=== PATIENT | male | born 1950 | race Caucasian/White ===

== ENCOUNTER 2019-06-15 22:04 | Observation (INO) ==
[2019-06-15] MEDS ORDERED: LACTATED RINGERS 1,000 ML IV STA (22:34)
[2019-06-15] MEDS ORDERED: DIPHTHERIA/TETANUS ADULT VACCINE 0.5 ML SYRINGE IM ONE (22:34)
[2019-06-15 23:06] LABS: Basophils % 0.3 % (0.0-0.8); Eosinophils # 0.4 10*3/uL (0.0-0.87); Eosinophils % 2.6 % (0.00-10.9); Hemoglobin 10.1 GM/DL (14.0-18.0); Immature Granulocytes % 0.5 %; Immature Granulocytes Absolute 0.07 #; Lymphocytes % 15.4 % (21.2-54.2); Mean Corpuscular HGB Conc 33.7 GM/DL (32-36); Mean Corpuscular Volume 93.8 FL (87-102); Monocytes % 7.2 % (1.7-12.7); Platelet Count 84 T/CUMM (130-400); Red Cell Distribution Width 12.7 % (9.3-17.3); White Blood Count 13.3 T/CUMM (4-12)
[2019-06-15 23:23] LABS: Alanine Aminotransferase 79 U/L (16-61); Albumin 3.3 G/DL (3.4-5.0); Alkaline Phosphatase 85 U/L (45-117); Amylase 53 U/L (25-115); Aspartate Amino Transferase 95 U/L (0-37); Bilirubin,Total < 0.39 MG/DL (0.2-1.0); Blood Urea Nitrogen 23 MG/DL (7-18); Calcium 8.8 MG/DL (8.5-10.1); Estimated Glom Filtration Rate 60 ML/MIN; Glucose 365 MG/DL (74-106); Osmolality,Calculated 282.5 MOS/KG (273-304); Total Protein 6.3 G/DL (6.4-8.3)
[2019-06-15 23:54] LABS: Barbiturates Screen,Urine Negative (Negative); Benzodiazepines Screen,Urine Negative (Negative); Cannabinoid Screen,Urine Positive (Negative); Opiate Screen,Urine Negative (Negative); Phencyclidine Screen,Urine Negative (Negative)
[2019-06-15 23:56] LABS: Apearance,Urine CLEAR (Clear); Bilirubin,Urine Negative (Negative); Blood, Urine Small mg/dL (Negative); Glucose,Urine (UA) >=500 mg/dL (Negative); Ketones,Urine Negative (Negative); Nitrite,Urine Negative (Negative); Protein,Urine Negative; RBC,Urine 1 /HPF (0-4); Squamous Epithelial Cell,Urine Occasional /HPF (0-10); Urine Color Straw (Yellow); Urine Urobilinogen < 2.0 EU/DL (0.2-1.0); WBC,Urine 1 /HPF (0-6)
[2019-06-15 23:57] LABS: INR 1.1; Partial Thromboplastin Time 26.2 SECS (23.9-33.8)
[2019-06-16 00:11] LABS: Band Neutrophils 1 % (0-10); Lymphocytes 26 % (20-55); Segmented Neutrophils 69 % (50-85)
[2019-06-16] MEDS ORDERED: TISSUE ADHESIVE 1 EACH APPLICATOR TOP ONE (00:13)
[2019-06-16 00:14] LABS: Total Cells Counted 100
[2019-06-16 00:15] LABS: Platelet Estimate Decreased
[2019-06-16] MEDS ORDERED: ACETAMINOPHEN 325 MG TABLET PO PRN (00:55)
[2019-06-16] MEDS ORDERED: ONDANSETRON 4 MG/2 ML VIAL IV PRN (00:55)
[2019-06-16] MEDS: cefTRIAXone 1,000 MG in SYRINGE 1 EACH IV SCH (03:58)
[2019-06-16] MEDS: THIAMINE INJ 100 MG, FOLIC ACID INJ 1 MG, MAGNESIUM SULF INJ 2 GM, MULTIVITAMIN INJ 10 ... IV SCH (03:58)
[2019-06-16 06:21] LABS: Basophils % 0.3 % (0.0-0.8); Eosinophils # 0.3 10*3/uL (0.0-0.87); Eosinophils % 2.2 % (0.00-10.9); Hematocrit 29.8 VOL% (42.0-52.0); Hemoglobin 9.9 GM/DL (14.0-18.0); Immature Granulocytes % 0.7 %; Lymphocytes # 2.2 10*3/uL (1.4-4.0); Lymphocytes % 14.4 % (21.2-54.2); Mean Corpuscular HGB Conc 33.2 GM/DL (32-36); Mean Corpuscular Volume 92.3 FL (87-102); Mean Platelet Volume 11.5 FL (9.6-12.0); Monocytes % 8.5 % (1.7-12.7); Neutrophils % 73.9 % (38.7-73.9); Platelet Count 156 T/CUMM (130-400); Red Blood Count 3.23 MC/CUMM (3.8-5.5); Red Cell Distribution Width 12.9 % (9.3-17.3); White Blood Count 15.3 T/CUMM (4-12)
[2019-06-16 07:15] LABS: Calcium 9.3 MG/DL (8.5-10.1); Osmolality,Calculated 283.1 MOS/KG (273-304)
[2019-06-16] MEDS: PANTOPRAZOLE 40 MG VIAL IV SCH (10:36)
[2019-06-16] MEDS ORDERED: DEXTROSE 10% 250 ML BAG IV PRN (11:25)
[2019-06-16] MEDS ORDERED: GLUCAGON 1 MG VIAL IM PRN (11:25)
[2019-06-16] MEDS: INSULIN REGULAR 100 UNIT/ML SUBCUT SCH ×3 (12:19→20:39)
[2019-06-16] MEDS ORDERED: DEXTROSE 50% 25 GM/50 ML SYRINGE IV PRN (23:52)
[2019-06-17] MEDS: THIAMINE INJ 100 MG, FOLIC ACID INJ 1 MG, MAGNESIUM SULF INJ 2 GM, MULTIVITAMIN INJ 10 ... IV SCH (01:10)
[2019-06-17] MEDS: cefTRIAXone 1,000 MG in SYRINGE 1 EACH IV SCH (03:04)
[2019-06-17] MEDS: DULoxetine 20 MG CAPSULE PO SCH (08:44)
[2019-06-17] MEDS: TAMSULOSIN 0.4 MG CAPSULE PO SCH (08:45)
[2019-06-17] MEDS: INSULIN REGULAR 100 UNIT/ML SUBCUT SCH ×4 (08:45→21:49)
[2019-06-17] MEDS: predniSONE 5 MG TABLET PO SCH (08:45)
[2019-06-17] MEDS: ASPIRIN EC 81 MG TABLET PO SCH (08:45)
[2019-06-17] MEDS: PANTOPRAZOLE 40 MG VIAL IV SCH (08:46)
[2019-06-17 08:48] LABS: Basophils % 0.3 % (0.0-0.8); Eosinophils # 0.5 10*3/uL (0.0-0.87); Eosinophils % 5.3 % (0.00-10.9); Hematocrit 27.8 VOL% (42.0-52.0); Hemoglobin 9.2 GM/DL (14.0-18.0); Immature Granulocytes % 0.5 %; Immature Granulocytes Absolute 0.05 #; Lymphocytes # 2.1 10*3/uL (1.4-4.0); Lymphocytes % 22.9 % (21.2-54.2); Mean Corpuscular HGB Conc 33.1 GM/DL (32-36); Mean Corpuscular Volume 92.7 FL (87-102); Mean Platelet Volume 11.4 FL (9.6-12.0); Monocytes % 12.2 % (1.7-12.7); Neutrophils % 58.8 % (38.7-73.9); Platelet Count 122 T/CUMM (130-400); Red Cell Distribution Width 13.2 % (9.3-17.3); White Blood Count 9.2 T/CUMM (4-12)
[2019-06-17 09:04] LABS: Calcium 8.5 MG/DL (8.5-10.1)
[2019-06-17] MEDS: IPRATROPIUM 500 MCG/2.5 ML NEB RESP TX SCH ×3 (11:01→19:44)
[2019-06-17] MEDS: DIGOXIN 0.25 MG TABLET PO SCH (11:39)
[2019-06-17] MEDS: GABAPENTIN 300 MG CAPSULE PO SCH (20:38)
[2019-06-18] MEDS: THIAMINE INJ 100 MG, FOLIC ACID INJ 1 MG, MAGNESIUM SULF INJ 2 GM, MULTIVITAMIN INJ 10 ... IV SCH (02:43)
[2019-06-18] MEDS: cefTRIAXone 1,000 MG in SYRINGE 1 EACH IV SCH (04:35)
[2019-06-18] MEDS: IPRATROPIUM 500 MCG/2.5 ML NEB RESP TX SCH ×3 (07:15→14:00)
[2019-06-18] MEDS ORDERED: CLOPIDOGREL 75 MG TABLET PO SCH (09:00)
[2019-06-18] MEDS: GABAPENTIN 300 MG CAPSULE PO SCH (09:30)
[2019-06-18] MEDS: ASPIRIN EC 81 MG TABLET PO SCH (09:31)
[2019-06-18] MEDS: DIGOXIN 0.25 MG TABLET PO SCH (09:31)
[2019-06-18] MEDS: DULoxetine 20 MG CAPSULE PO SCH (09:31)
[2019-06-18] MEDS: predniSONE 5 MG TABLET PO SCH (09:31)
[2019-06-18] MEDS: PANTOPRAZOLE 40 MG VIAL IV SCH (09:32)
[2019-06-18] MEDS: INSULIN REGULAR 100 UNIT/ML SUBCUT SCH ×2 (09:36→12:52)
[2019-06-18] MEDS: TAMSULOSIN 0.4 MG CAPSULE PO SCH (09:36)
[2019-06-18 11:56] VITALS: BP 149/70
== END 2019-06-18 14:33 | disposition home or self-care (01) ==
LOC: EDBD → EDUNIT# → N.EDINP 22:04 → N.ED 22:04 → N.3E 06-16 02:20
PROVIDERS: ADMIT Student in an Organized Health Care Education/Training Program; ATTEND Student in an Organized Health Care Education/Training Program

== ENCOUNTER 2020-02-20 11:11 | Inpatient (IN) ==
[2020-02-20 12:09] LABS: Basophils # 0.1 10*3/uL (0.0-0.2); Basophils % 0.2 % (0.0-0.8); Eosinophils % 0.1 % (0.00-10.9); Hematocrit 52.6 VOL% (42.0-52.0); Hemoglobin 16.5 GM/DL (14.0-18.0); Immature Granulocytes % 0.7 %; Lymphocytes # 1.7 10*3/uL (1.4-4.0); Lymphocytes % 5.7 % (21.2-54.2); Mean Corpuscular HGB Conc 31.4 GM/DL (32-36); Mean Corpuscular Volume 93.8 FL (87-102); Mean Platelet Volume 11.8 FL (9.6-12.0); Monocytes % 9.5 % (1.7-12.7); Neutrophils % 83.8 % (38.7-73.9); Platelet Count 251 T/CUMM (130-400); Red Blood Count 5.61 MC/CUMM (3.8-5.5); Red Cell Distribution Width 14.6 % (9.3-17.3); White Blood Count 29.4 T/CUMM (4-12)
[2020-02-20] MEDS ORDERED: ONDANSETRON 4 MG/2 ML VIAL IV STA (12:12)
[2020-02-20] MEDS ORDERED: SODIUM CHLORIDE 0.9% 1,000 ML IV STA ×2 (12:12→12:44)
[2020-02-20 12:27] LABS: Albumin 4.7 G/DL (3.4-5.0); Bilirubin,Total 0.8 MG/DL (0.2-1.0); Osmolality,Calculated 287.5 MOS/KG (273-304); Total Protein 8.6 G/DL (6.4-8.3)
[2020-02-20 12:34] LABS: INR 1.1; PT Patient Result 11.5 SECS (9.8-11.9)
[2020-02-20 12:37] LABS: Anisocytosis Slight; Band Neutrophils 14 % (0-10); Ferritin 15.5 ng/ml (26-388); Lymphocytes 11 % (20-55); Macrocytosis Slight; Platelet Estimate Normal; Segmented Neutrophils 66 % (50-85); Total Cells Counted 100
[2020-02-20] MEDS ORDERED: PIPERACILLIN/TAZOBACTAM 3,375 MG in SODIUM CHLORIDE 0.9% 100 ML IV STA (12:43)
[2020-02-20 14:01] LABS: ABG Base Excess -9.7 MMOL/L (-2.5-2.5); ABG HCO3 16.8 MMOL/L (20-26); ABG Oxygen Saturation 94.8 % (95-100); ABG PCO2 33.9 MM HG (35-48); ABG PH 7.287 (7.35-7.45); ABG PO2 83.3 MM HG (80-95); ABG TCO2 14.3 MMOL/L (23-27)
[2020-02-20] MEDS ORDERED: chlordiazePOXIDE 10 MG CAPSULE PO PRN (14:21)
[2020-02-20] MEDS ORDERED: ALBUTEROL 2.5 MG/3 ML NEB RESP TX PRN (14:21)
[2020-02-20] MEDS ORDERED: SODIUM BICARBONATE 50 MEQ/50 ML VIAL IV STA (14:23)
[2020-02-20] MEDS ORDERED: SODIUM BICARB INJ 150 MEQ in STERILE WATER INJ 350 ML IV ONE (14:28)
[2020-02-20] MEDS ORDERED: PANTOPRAZOLE 40 MG VIAL IV SCH (14:30)
[2020-02-20] MEDS ORDERED: hydrALAZINE 20 MG/1 ML VIAL IV PRN (14:34)
[2020-02-20] MEDS: cefTRIAXone 1,000 MG in SYRINGE 1 EACH IV SCH (15:00)
[2020-02-20] MEDS: ONDANSETRON 4 MG/2 ML VIAL IV PRN (16:00)
[2020-02-20] MEDS: INSULIN REGULAR 100 UNIT/ML SUBCUT SCH ×2 (16:30→20:48)
[2020-02-20] MEDS: metroNIDAZOLE INJ 500 MG in PREMIX 1 EACH IV SCH ×2 (16:30→23:33)
[2020-02-20] MEDS ORDERED: PHENOL 1.4% THROAT SPRAY 177 ML BOTTLE PO PRN (18:44)
[2020-02-20] MEDS: SODIUM BICARB INJ 150 MEQ in STERILE WATER INJ 850 ML IV SCH (20:25)
[2020-02-20] MEDS: PANTOPRAZOLE 40 MG VIAL IV SCH (20:35)
[2020-02-20] MEDS: GABAPENTIN 300 MG CAPSULE PO SCH (20:37)
[2020-02-20] MEDS: BENZONATATE 100 MG CAPSULE PO SCH (20:37)
[2020-02-20] MEDS: hydrOXYzine HCL 10 MG TABLET PO PRN (21:07)
[2020-02-20] MEDS: BENZOCAINE/MENTHOL LOZENGE 18/BOX PO PRN (22:57)
[2020-02-21 01:26] LABS: Basophils % 0.2 % (0.0-0.8); Eosinophils % 0.2 % (0.00-10.9); Hematocrit 38.7 VOL% (42.0-52.0); Immature Granulocytes % 0.5 %; Immature Granulocytes Absolute 0.09 #; Lymphocytes # 1.8 10*3/uL (1.4-4.0); Lymphocytes % 9.9 % (21.2-54.2); Mean Corpuscular HGB Conc 33.9 GM/DL (32-36); Mean Corpuscular Volume 88.8 FL (87-102); Mean Platelet Volume 11.1 FL (9.6-12.0); Monocytes % 13.1 % (1.7-12.7); Neutrophils % 76.1 % (38.7-73.9); Red Cell Distribution Width 14.6 % (9.3-17.3)
[2020-02-21 01:27] LABS: Hemoglobin 13.1 GM/DL (14.0-18.0); Platelet Count 193 T/CUMM (130-400); Red Blood Count 4.36 MC/CUMM (3.8-5.5); White Blood Count 18.6 T/CUMM (4-12)
[2020-02-21 01:34] LABS: INR 1.2; PT Patient Result 12.4 SECS (9.8-11.9)
[2020-02-21 01:44] LABS: Albumin 3.4 G/DL (3.4-5.0); Bilirubin,Total 0.6 MG/DL (0.2-1.0); Calcium 8.2 MG/DL (8.5-10.1); Osmolality,Calculated 284.3 MOS/KG (273-304); Total Protein 6.7 G/DL (6.4-8.3)
[2020-02-21] MEDS: SODIUM BICARB INJ 150 MEQ in STERILE WATER INJ 850 ML IV SCH (04:28)
[2020-02-21] MEDS: metroNIDAZOLE INJ 500 MG in PREMIX 1 EACH IV SCH ×3 (07:28→23:04)
[2020-02-21] MEDS: INSULIN REGULAR 100 UNIT/ML SUBCUT SCH ×4 (08:32→21:17)
[2020-02-21] MEDS: LACTATED RINGERS 1,000 ML IV SCH (08:43)
[2020-02-21] MEDS: DIGOXIN 0.25 MG TABLET PO SCH (09:03)
[2020-02-21] MEDS: PANTOPRAZOLE 40 MG VIAL IV SCH ×2 (09:03→21:19)
[2020-02-21] MEDS: GABAPENTIN 300 MG CAPSULE PO SCH ×2 (09:04→21:24)
[2020-02-21] MEDS: BENZONATATE 100 MG CAPSULE PO SCH ×3 (09:04→21:24)
[2020-02-21] MEDS: CLOPIDOGREL 75 MG TABLET PO SCH (09:04)
[2020-02-21] MEDS: TAMSULOSIN 0.4 MG CAPSULE PO SCH (09:04)
[2020-02-21] MEDS: ASPIRIN EC 81 MG TABLET PO SCH (09:04)
[2020-02-21] MEDS: DULoxetine 20 MG CAPSULE PO SCH (09:05)
[2020-02-21] MEDS: cefTRIAXone 1,000 MG in SYRINGE 1 EACH IV SCH (16:40)
[2020-02-21] MEDS: ATORVASTATIN 80 MG TABLET PO SCH (21:24)
[2020-02-21] MEDS: hydrOXYzine HCL 10 MG TABLET PO PRN (23:29)
[2020-02-22] MEDS: LACTATED RINGERS 1,000 ML IV SCH ×2 (04:42→15:58)
[2020-02-22] MEDS: ACETAMINOPHEN 325 MG TABLET PO PRN ×2 (05:34→10:31)
[2020-02-22 06:05] LABS: Basophils # 0.1 10*3/uL (0.0-0.2); Basophils % 0.5 % (0.0-0.8); Eosinophils # 0.4 10*3/uL (0.0-0.87); Eosinophils % 3.6 % (0.00-10.9); Hematocrit 40.2 VOL% (42.0-52.0); Hemoglobin 13.3 GM/DL (14.0-18.0); Immature Granulocytes % 0.4 %; Immature Granulocytes Absolute 0.04 #; Lymphocytes # 1.6 10*3/uL (1.4-4.0); Lymphocytes % 15.2 % (21.2-54.2); Mean Corpuscular HGB Conc 33.1 GM/DL (32-36); Mean Corpuscular Volume 90.5 FL (87-102); Mean Platelet Volume 11.5 FL (9.6-12.0); Neutrophils % 69.3 % (38.7-73.9); Platelet Count 162 T/CUMM (130-400); Red Blood Count 4.44 MC/CUMM (3.8-5.5); Red Cell Distribution Width 14.5 % (9.3-17.3); White Blood Count 10.6 T/CUMM (4-12)
[2020-02-22 06:13] LABS: Calcium 8.9 MG/DL (8.5-10.1); Osmolality,Calculated 283.1 MOS/KG (273-304)
[2020-02-22 06:16] LABS: Osmolality,Calculated 279.4 MOS/KG (273-304)
[2020-02-22] MEDS: INSULIN REGULAR 100 UNIT/ML SUBCUT SCH ×4 (08:33→20:33)
[2020-02-22] MEDS: BENZOCAINE/MENTHOL LOZENGE 18/BOX PO PRN ×2 (10:15→13:29)
[2020-02-22] MEDS: ASPIRIN EC 81 MG TABLET PO SCH (10:15)
[2020-02-22] MEDS: PANTOPRAZOLE 40 MG VIAL IV SCH ×2 (10:15→20:34)
[2020-02-22] MEDS: BENZONATATE 100 MG CAPSULE PO SCH ×3 (10:16→20:34)
[2020-02-22] MEDS: GABAPENTIN 300 MG CAPSULE PO SCH ×2 (10:16→20:34)
[2020-02-22] MEDS: DULoxetine 20 MG CAPSULE PO SCH (10:16)
[2020-02-22] MEDS: CLOPIDOGREL 75 MG TABLET PO SCH (10:16)
[2020-02-22] MEDS: DIGOXIN 0.25 MG TABLET PO SCH (10:17)
[2020-02-22] MEDS: metroNIDAZOLE INJ 500 MG in PREMIX 1 EACH IV SCH ×3 (10:17→23:17)
[2020-02-22] MEDS: TAMSULOSIN 0.4 MG CAPSULE PO SCH (10:17)
[2020-02-22] MEDS: FOLIC ACID INJ 1 MG in SYRINGE 1 EACH IV SCH (13:29)
[2020-02-22] MEDS: THIAMINE 200 MG/2 ML VIAL IV SCH (13:29)
[2020-02-22] MEDS: cefTRIAXone 1,000 MG in SYRINGE 1 EACH IV SCH (15:58)
[2020-02-22] MEDS: ATORVASTATIN 80 MG TABLET PO SCH (20:34)
[2020-02-22] MEDS: hydrOXYzine HCL 10 MG TABLET PO PRN (20:37)
[2020-02-23] MEDS: LACTATED RINGERS 1,000 ML IV SCH ×2 (05:32→18:22)
[2020-02-23 06:00] LABS: Basophils % 0.4 % (0.0-0.8); Eosinophils # 0.6 10*3/uL (0.0-0.87); Eosinophils % 6.9 % (0.00-10.9); Hematocrit 43.9 VOL% (42.0-52.0); Hemoglobin 14.3 GM/DL (14.0-18.0); Immature Granulocytes % 0.2 %; Immature Granulocytes Absolute 0.02 #; Lymphocytes # 1.5 10*3/uL (1.4-4.0); Mean Corpuscular HGB Conc 32.6 GM/DL (32-36); Mean Corpuscular Volume 90.1 FL (87-102); Mean Platelet Volume 11.3 FL (9.6-12.0); Monocytes % 11.7 % (1.7-12.7); Neutrophils % 62.8 % (38.7-73.9); Platelet Count 168 T/CUMM (130-400); Red Blood Count 4.87 MC/CUMM (3.8-5.5); Red Cell Distribution Width 14.3 % (9.3-17.3); White Blood Count 8.3 T/CUMM (4-12)
[2020-02-23 06:11] LABS: Albumin 3.2 G/DL (3.4-5.0); Bilirubin,Direct 0.11 MG/DL (0.0-0.20); Bilirubin,Indirect 0.4 MG/DL (0.0-1.0); Bilirubin,Total 0.5 MG/DL (0.2-1.0); Calcium 9.4 MG/DL (8.5-10.1); Osmolality,Calculated 283.1 MOS/KG (273-304); Total Protein 7.1 G/DL (6.4-8.3)
[2020-02-23] MEDS: ONDANSETRON 4 MG/2 ML VIAL IV PRN (07:29)
[2020-02-23] MEDS: INSULIN REGULAR 100 UNIT/ML SUBCUT SCH ×4 (07:50→20:04)
[2020-02-23] MEDS: FOLIC ACID INJ 1 MG in SYRINGE 1 EACH IV SCH (09:11)
[2020-02-23] MEDS: DIGOXIN 0.25 MG TABLET PO SCH (09:11)
[2020-02-23] MEDS: THIAMINE 200 MG/2 ML VIAL IV SCH (09:12)
[2020-02-23] MEDS: BENZONATATE 100 MG CAPSULE PO SCH ×3 (09:12→20:03)
[2020-02-23] MEDS: METOPROLOL SUCCINATE XL 25 MG TABLET PO SCH (09:12)
[2020-02-23] MEDS: GABAPENTIN 300 MG CAPSULE PO SCH ×2 (09:12→20:03)
[2020-02-23] MEDS: DULoxetine 20 MG CAPSULE PO SCH (09:12)
[2020-02-23] MEDS: ASPIRIN EC 81 MG TABLET PO SCH (09:12)
[2020-02-23] MEDS: TAMSULOSIN 0.4 MG CAPSULE PO SCH (09:12)
[2020-02-23] MEDS: PANTOPRAZOLE 40 MG VIAL IV SCH ×2 (09:13→20:03)
[2020-02-23] MEDS: metroNIDAZOLE INJ 500 MG in PREMIX 1 EACH IV SCH ×3 (09:13→23:04)
[2020-02-23] MEDS: ACETAMINOPHEN 325 MG TABLET PO PRN (09:14)
[2020-02-23] MEDS: POTASSIUM CHLORIDE RIDER 10 MEQ in PREMIX 1 EACH IV PRN ×4 (12:53→20:03)
[2020-02-23] MEDS: cefTRIAXone 1,000 MG in SYRINGE 1 EACH IV SCH (16:36)
[2020-02-23] MEDS: hydrOXYzine HCL 10 MG TABLET PO PRN (20:03)
[2020-02-23] MEDS: ATORVASTATIN 80 MG TABLET PO SCH (20:03)
[2020-02-24] MEDS: POTASSIUM CHLORIDE RIDER 10 MEQ in PREMIX 1 EACH IV PRN ×4 (00:36→14:34)
[2020-02-24] MEDS: metroNIDAZOLE INJ 500 MG in PREMIX 1 EACH IV SCH ×3 (09:38→23:18)
[2020-02-24] MEDS: PANTOPRAZOLE 40 MG VIAL IV SCH ×2 (09:38→21:45)
[2020-02-24] MEDS: DULoxetine 20 MG CAPSULE PO SCH (09:39)
[2020-02-24] MEDS: THIAMINE 200 MG/2 ML VIAL IV SCH (09:39)
[2020-02-24] MEDS: METOPROLOL SUCCINATE XL 25 MG TABLET PO SCH (09:39)
[2020-02-24] MEDS: TAMSULOSIN 0.4 MG CAPSULE PO SCH (09:39)
[2020-02-24] MEDS: ASPIRIN EC 81 MG TABLET PO SCH (09:40)
[2020-02-24] MEDS: INSULIN REGULAR 100 UNIT/ML SUBCUT SCH ×4 (09:40→20:06)
[2020-02-24] MEDS: GABAPENTIN 300 MG CAPSULE PO SCH ×2 (09:40→21:45)
[2020-02-24] MEDS: DIGOXIN 0.25 MG TABLET PO SCH (09:40)
[2020-02-24] MEDS: FOLIC ACID INJ 1 MG in SYRINGE 1 EACH IV SCH (09:40)
[2020-02-24] MEDS: BENZONATATE 100 MG CAPSULE PO SCH ×3 (09:40→21:46)
[2020-02-24] MEDS: LACTATED RINGERS 1,000 ML IV SCH ×2 (09:41→23:42)
[2020-02-24] MEDS: cefTRIAXone 1,000 MG in SYRINGE 1 EACH IV SCH (14:33)
[2020-02-24] MEDS: ONDANSETRON 4 MG/2 ML VIAL IV PRN (14:42)
[2020-02-24] MEDS: ATORVASTATIN 80 MG TABLET PO SCH (21:45)
[2020-02-24] MEDS: hydrOXYzine HCL 10 MG TABLET PO PRN (21:46)
[2020-02-25 05:30] LABS: Basophils # 0.1 10*3/uL (0.0-0.2); Basophils % 0.6 % (0.0-0.8); Eosinophils # 0.7 10*3/uL (0.0-0.87); Eosinophils % 7.3 % (0.00-10.9); Hematocrit 44.3 VOL% (42.0-52.0); Hemoglobin 14.2 GM/DL (14.0-18.0); Immature Granulocytes % 0.3 %; Immature Granulocytes Absolute 0.03 #; Lymphocytes # 2.1 10*3/uL (1.4-4.0); Mean Corpuscular HGB Conc 32.1 GM/DL (32-36); Mean Corpuscular Volume 90.4 FL (87-102); Neutrophils % 52.8 % (38.7-73.9); Platelet Count 196 T/CUMM (130-400); Red Cell Distribution Width 14.3 % (9.3-17.3); White Blood Count 8.9 T/CUMM (4-12)
[2020-02-25 05:43] LABS: Calcium 9.3 MG/DL (8.5-10.1); Osmolality,Calculated 281.1 MOS/KG (273-304)
[2020-02-25] MEDS: metroNIDAZOLE INJ 500 MG in PREMIX 1 EACH IV SCH (09:41)
[2020-02-25] MEDS: INSULIN REGULAR 100 UNIT/ML SUBCUT SCH ×4 (09:42→22:17)
[2020-02-25] MEDS: PANTOPRAZOLE 40 MG VIAL IV SCH ×2 (09:42→22:17)
[2020-02-25] MEDS: METOPROLOL SUCCINATE XL 25 MG TABLET PO SCH ×2 (11:13→22:16)
[2020-02-25] MEDS: GABAPENTIN 300 MG CAPSULE PO SCH ×2 (11:13→22:16)
[2020-02-25] MEDS: TAMSULOSIN 0.4 MG CAPSULE PO SCH (11:13)
[2020-02-25] MEDS: DULoxetine 20 MG CAPSULE PO SCH (11:13)
[2020-02-25] MEDS: ASPIRIN EC 81 MG TABLET PO SCH (11:14)
[2020-02-25] MEDS: BENZONATATE 100 MG CAPSULE PO SCH ×3 (11:14→22:16)
[2020-02-25] MEDS: DIGOXIN 0.25 MG TABLET PO SCH (11:14)
[2020-02-25] MEDS: THIAMINE 200 MG/2 ML VIAL IV SCH (11:21)
[2020-02-25] MEDS: FOLIC ACID INJ 1 MG in SYRINGE 1 EACH IV SCH (11:21)
[2020-02-25] MEDS: LACTATED RINGERS 1,000 ML IV SCH (16:16)
[2020-02-25] MEDS: ATORVASTATIN 80 MG TABLET PO SCH (22:17)
[2020-02-25] MEDS: hydrOXYzine HCL 10 MG TABLET PO PRN (22:19)
[2020-02-26] MEDS: LACTATED RINGERS 1,000 ML IV SCH ×3 (05:22→15:36)
[2020-02-26 06:16] LABS: Basophils % 0.5 % (0.0-0.8); Eosinophils # 0.6 10*3/uL (0.0-0.87); Eosinophils % 7.4 % (0.00-10.9); Hematocrit 42.5 VOL% (42.0-52.0); Hemoglobin 13.8 GM/DL (14.0-18.0); Immature Granulocytes % 0.4 %; Immature Granulocytes Absolute 0.03 #; Lymphocytes % 24.9 % (21.2-54.2); Mean Corpuscular HGB Conc 32.5 GM/DL (32-36); Mean Corpuscular Volume 90.8 FL (87-102); Mean Platelet Volume 11.2 FL (9.6-12.0); Monocytes % 12.2 % (1.7-12.7); Neutrophils % 54.6 % (38.7-73.9); Platelet Count 172 T/CUMM (130-400); Red Blood Count 4.68 MC/CUMM (3.8-5.5); Red Cell Distribution Width 14.3 % (9.3-17.3); White Blood Count 7.9 T/CUMM (4-12)
[2020-02-26] MEDS ORDERED: LACTATED RINGERS 1,000 ML IV SCH (08:00)
[2020-02-26] MEDS ORDERED: THIAMINE 100 MG TABLET PO SCH (09:00)
[2020-02-26] MEDS ORDERED: FOLIC ACID 1 MG TABLET PO SCH (09:00)
[2020-02-26] MEDS: INSULIN REGULAR 100 UNIT/ML SUBCUT SCH ×2 (09:02→11:35)
[2020-02-26] MEDS: DULoxetine 20 MG CAPSULE PO SCH (09:02)
[2020-02-26] MEDS: ASPIRIN EC 81 MG TABLET PO SCH (09:02)
[2020-02-26] MEDS: DIGOXIN 0.25 MG TABLET PO SCH (09:02)
[2020-02-26] MEDS: TAMSULOSIN 0.4 MG CAPSULE PO SCH (09:02)
[2020-02-26] MEDS: GABAPENTIN 300 MG CAPSULE PO SCH (09:02)
[2020-02-26] MEDS: BENZONATATE 100 MG CAPSULE PO SCH ×2 (09:03→15:35)
[2020-02-26] MEDS: METOPROLOL SUCCINATE XL 25 MG TABLET PO SCH (09:03)
[2020-02-26] MEDS: PANTOPRAZOLE 40 MG VIAL IV SCH (09:55)
[2020-02-26] MEDS ORDERED: LIDOCAINE 2% 5 ML VIAL ONE (12:05)
[2020-02-26] MEDS ORDERED: propofoL 200 MG/20 ML VIAL IV ONE (12:05)
[2020-02-26 13:25] VITALS: BP 132/81
== END 2020-02-26 15:36 | disposition home or self-care (01) | DRG 813 ==
LOC: N.ED 11:11 → SUATTDRO 14:21 → N.EDINP 14:21 → N.ICU 17:36 → N.5E 02-21 09:40
PROVIDERS: ADMIT Family Medicine; ATTEND Internal Medicine